=== PATIENT | male | born 1980 | race Caucasian/White ===

== ENCOUNTER 2017-04-10 13:40 | Emergency (ER) | payer OTHER ==
[~2017-04-10] VITALS: Ht 181.6 cm; Wt 168.2 kg
[2017-04-10 13:42] VITALS: BP 137/85; PULSE 86; RESP 15; O2SAT 97
[2017-04-10] MEDS ORDERED: FLUO20CA25 PO (14:30)
[2017-04-10] MEDS ORDERED: PROP20TA5 PO (14:30)
--- NOTE | 2017-04-10 14:42 | ED.REPORT ---
HPI-General Illness Date of Service Apr 10, 2017 ED Provider: Jeffery Rodriguez MD A 36 year old male with a history of hypertension, obesity and anxiety presents to the ED from his PCP's office complaining of intermittent heart palpitations that began earlier this afternoon. He describes the discomfort in his chest as a "tightness" that does not radiate outside of his chest. The pain feels similar to her previous episodes of anxiety. Patient endorses an episode of "flutter" in his anterior chest wall with associated SOB that has since resolved. He recently stopped taking Ativan 2 days ago after 2 months of treatment for anxiety.The patient denies any fever, chills, cough, nausea, vomiting, dysuria, hematuria, hematochezia, hematemesis, abdominal pain, diaphoresis, dizziness, lightheadedness, visual disturbances, ear ache, neck pain, back pain, or headache. Brother of CAD at 39. Former smoker. No previous stress test. Nursing Notes Stated Complaint: HEART ISSUE Chief Complaint: Chest Pain-Non Cardiac Nature Nursing Notes Reviewed: Yes Allergies: Coded Allergies: No Known Allergies (Unverified Allergy, Unknown, 03/01/15) Scheduled Fluoxetine (Fluoxetine) 20 Mg Capsule 60 MG PO QAM Propranolol HCl (Propranolol HCl) 20 Mg Tablet 20 MG PO TID General Time Seen by MD: 14:28 Chief Complaint Other (Heart palpitations) Hx Obtained From: Patient Arrived By: Walk-in Sudden in Onset?: No Onset Occurred: 1 - 4 hours ago Symptom Duration: Since onset Location: : Chest Quality: Fullness (Tightness) Radiation: : Does not radiate Severity: Current: Mild Severity: Maximum: Moderate Associated with: Reports: Chest pain, Shortness of breath, Denies: Abdominal pain, Cough, Diaphoresis, Dizziness, Fever, Headache, Nausea, Neck pain, Vomiting, Weakness Pertinent Negative: Pt denies other symptoms Recent Healthcare: No recent hospitalization, Recent doctor visit Similar Sx Previous: Yes Past Medical History Past Medical History Notes: Seen in ED 06/2016 for CP, neg ED workup, seen 07/30/16 for CP in ED, negative ED workup 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 Past Medical History 1. Obesity 2. Hypertension 3. Anxiety 4. Depression 5. Reports eczema Past Surgical History None reported Family History Brother: CAD at 39 Reports: Coronary artery disease Smoking History Former Smoker Social History Alcohol Use: Denies alcohol use Drug Use: Denies drug use Other Social History: Good social support, Local resident Ambulatory Status Independent Review of Systems Full Review of Systems Constitutional: Denies: Chills, Fever Eyes: Denies: Visual loss bilateral Ears / Nose / Throat: Denies: Earache bilateral Respiratory: Reports: Shortness of breath, Denies: Non-productive cough Cardiovascular: Reports: Chest pain GI: Denies: Abdominal pain, Nausea, Vomiting Male: Denies Dysuria, Denies Hematuria Musculoskeletal: Denies: Back pain, Neck pain Skin: Denies Diaphoresis Neurologic: Denies: Dizziness, Headache, Lightheaded Complete sys rev & neg: except as marked. Physical Exam Nursing note and vitals reviewed. Constitutional: Well-developed, well-nourished. Not diaphoretic. Head: Normocephalic and atraumatic. Mouth/Throat: Oropharynx is clear and moist. No oropharyngeal exudate. Eyes: EOM are normal. Pupils are equal, round, and reactive to light. Neck: Supple, no tracheal deviation. Cardiovascular: Normal rate, regular rhythm. Equal and intact distal pulses throughout. Pulmonary/Chest: Effort normal and breath sounds normal. No respiratory distress. Abdominal: Soft. No distension. There is no rebound, or guarding. Musculoskeletal: Range of motion grossly intact, moving all extremities. No edema or tenderness appreciated. Neurological: AOx3. Grossly nonfocal exam. Strength and sensation intact and equal to bilateral upper and lower extremities. Skin: Warm and dry, no rashes or pallor appreciated. Psychiatric: Appropriate mood and affect. Behavior appears normal. Vital Signs Vital Signs Date Time Temp Pulse Resp B/P Pulse Ox O2 Delivery O2 Flow Rate FiO2 04/10/17 19:18 80 20 136/67 95 Room Air 04/10/17 16:26 75 14 111/64 96 Room Air 04/10/17 13:42 35.9 86 15 137/85 97 Room Air Interpretation & Diagnostics Lab Results Interpretation Result Diagram: 04/10/17 1505 04/10/17 1505 Test 04/10/17 15:05 04/10/17 17:36 White Blood Count 11.0th/mm3 (3.8-10.1) Red Blood Count 5.19mil/mm3 (4.40-5.80) Hemoglobin 15.2g/dL (13.8-17.2) Hematocrit 44.0% (41.0-50.0) Mean Corpuscular Volume 84.8fL (81-100) Mean Corpuscular Hemoglobin 29.3pg (27.0-35.0) Mean Corpuscular Hemoglobin Concent 34.5% (32.0-37.0) Red Cell Distribution Width 13.7% (12.3-15.4) Platelet Count 344bil/L (150-400) Neutrophils (%) (Auto) 65.1% (40-74) Lymphocytes (%) (Auto) 23.7% (14-46) Monocytes (%) (Auto) 6.4% (4-12) Eosinophils (%) (Auto) 3.9% (0-5) Basophils (%) (Auto) 0.4% (0-3) D-Dimer < 0.50mg/L FEU (<0.50) Sodium Level 138mEq/L (134-144) Potassium Level 4.2mEq/L (3.5-5.2) Chloride Level 99mEq/L (97-108) Carbon Dioxide Level 24mmol/L (18-29) Blood Urea Nitrogen 13mg/dL (6-20) Creatinine 0.77mg/dL (0.76-1.27) Estimat Glomerular Filtration Rate 121mL/min (>59) Glucose Level 89mg/dL (60-99) Calcium Level 9.1mg/dL (8.5-10.1) Magnesium Level 2.0mg/dL (1.6-2.6) Total Bilirubin 0.2mg/dL (0.0-1.2) Aspartate Amino Transf (AST/SGOT) 24U/L (0-50) Alanine Aminotransferase (ALT/SGPT) 43U/L (0-44) Alkaline Phosphatase 70U/L (25-150) Total Protein 7.7g/dL (6.4-8.4) Albumin 4.1g/dL (3.4-5.0) Thyroid Stimulating Hormone (TSH) 1.180uIU/mL (0.450-4.500) Free Thyroxine 1.09ng/dL (0.82-1.77) Hold Garcia Top Tube Received (Received) Troponin T < 0.010ug/L (0.0-0.011) ECG Interpretation ECG Interpretation: Sinus Rhythm Rate 82 bpm No acute ischemic changes Time: 15:28 Interpreted by: ED physician Normal ECG Interpretation: No change from prior ECGs (08/01/2016) X-Ray Chest Interpretation Chest Xray Interpretation: IMPRESSION: No acute cardiopulmonary disease. Dictated by: Tim Huntley M.D. on 04/10/2017 at 15:02 Interpretation / Wet Read by: Interpret - Radiologist Re-Eval/Medical Decision Med Decision/Clinical Course In summary, 36-year-old male presenting to the ED for evaluation of palpitations and chest tightness. Differential includes ACS, PE, PTX, aortic dissection, dysrhythmia, myocarditis/pericarditis, abdominal etiology such as cholecystitis, MSK pain. Troponin negative x 2. HEART score of 2. EKG demonstrates sinus rhythm with no acute ischemic changes. D-dimer negative; low clinical suspicion for PE. No evidence of pneumothorax on chest x-ray or exam. Pain not described as tearing through to the back, CXR w/ no evidence of widened mediastinum, normal neuro exam, and equal pulses to bilateral upper and lower extremities; aortic dissection seems very unlikely. Sinus rhythm both on EKG and on the monitor here. Thyroid studies within normal limits. Neither clinical presentation, exam, or EKG seem c/w pericarditis or myocarditis. No abdominal pain or tenderness. Rest of labs reviewed, unremarkable; CBC grossly within normal limits with the exception of a very mild leukocytosis without a left shift, CMP grossly within normal limits. Unclear etiology for the patient' s symptoms at this time, however given his recent Ativan use and attempt to taper off, this may be somewhat related. However, patient would likely benefit from a stress test for risk stratification - discussed doing this here or as an outpatient and decided to follow up with his regular doctor on Wednesday. Very careful return precautions were discussed. Patient agreeable to plan, no further questions. Time of Eval: 16:40 Patient Status: Condition improved, Pain improved Re-Evaluation/Progress Note: Patient condition is re-evaluated. He is informed of his current results and the intended treatment plan. All questions are addressed. He understands and agrees with the plan. Strict return precautions are given. Counseled Regarding: Diagnosis, Lab results, Need for follow-up, When/why to return to ED Discharge & Departure Primary Impression: Chest pain Chest pain type: unspecified Qualified Code: R07.9 - Chest pain, unspecified Additional Impressions: Heart palpitations Anxiety Disposition: Home Discharge Condition All VS Reviewed: Yes Condition: Improved Patient Instructions: Anxiety (ED), Chest Pain (ED), Heart Palpitations (ED) Additional Instructions: Thank you for entrusting us with your care today. Your emergency department evaluation today included interview, examination, lab work, EKG and chest X-ray. Your results including repeat troponin and D-dimer are reassuring that there is no emergent cause for concern at this time, however , a clear cause of your symptoms was not identified. I highly recommend that you schedule a follow-up appointment with your primary care physician on Wednesday for a recheck and to schedule a stress test to test for cardiac abnormalities. Please return to the emergency department for any new or worsening conditions including any worsening.new chest pain, shortness of breath, abdominal pain, fevers, chills, nausea, vomiting, lightheadedness, excessive sweating, dizziness or any other concerning signs of symptoms. Referrals: Yanelis Luong DO (PCP) Scribe Attestation Portions of this note were transcribed by Esha Souza. I, Dr. Rodriguez, personally performed the history, physical exam and medical decision-making; I reviewed and confirmed the accuracy of the information in the transcribed note. Signed by: Esha Souza, 04/10/17. copies to: Yanelis Luong DO Risk Factors )( CAD Risk Stratification Risk factors reviewed TAD Risk Stratification Risk factors reviewed )( PE Risk Stratification Risk factors reviewed HEART Score HEART for MACE: Low index of susp (0), Normal ECG (0), Age under 45 (0), 3+ CAD risk factors (2), < or = to NL troponin (0) HEART for MACE Score: 0-3 (low risk 0.9%-1.7%) Jeffery Rodriguez MD Apr 10, 2017 14:42 ESHA SOUZA Apr 10, 2017 14:47
[2017-04-10] MEDS ORDERED: LORazepam 0.5 mg Tablet PO PRN (14:50)
--- NOTE | 2017-04-10 15:05 | DRSVH ---
PROCEDURE: X-RAY CHEST ONE VIEW, PORTABLE ([id number]) INDICATIONS: 36 year-old male with palpitations. TECHNIQUE: One view of the chest was acquired. COMPARISON: [facility], CR, XR CHEST 1VW, 08/01/2016, 14:07. [facility], CR , XR CHEST 2VW, 07/30/2016, 15:09. [facility], CR, XR CHEST 1VW (PORTABLE), 06/13/2016, 21:54. FINDINGS: Surgical changes and devices: None. Lungs and pleura: No pleural effusions or pneumothorax. Lungs are clear. Mediastinum: Mediastinal contours appear normal. Heart size is normal. Bones and chest wall: No suspicious bony lesions. Overlying soft tissues appear unremarkable. IMPRESSION: No acute cardiopulmonary disease. Dictated by: Tim Huntley M.D. on 04/10/2017 at 15:02 Approved by: Tim Huntley M.D. on 04/10/2017 at 15:03
[2017-04-10 15:19] LABS: BASOPHILS % (AUTO) 0.4 % (0-3); EOSINOPHILS % (AUTO) 3.9 % (0-5); MONOCYTES % (AUTO) 6.4 % (4-12); Mean Corpuscular Hemoglobin 29.3 pg (27.0-35.0); Mean Corpuscular Volume 84.8 fL (81-100); NEUTROPHILS % (AUTO) 65.1 % (40-74); Platelet Count 344 bil/L (150-400)
[2017-04-10 16:06] LABS: TROPONIN T < 0.010 ug/L (0.0-0.011)
[2017-04-10 16:26] VITALS: BP 111/64; PULSE 75; RESP 14; O2SAT 96
[2017-04-10 19:18] VITALS: BP 136/67; PULSE 80; RESP 20; O2SAT 95
== END 2017-04-10 19:19 | disposition home or self-care (01) ==
LOC: SED 13:40
DX: R07.9 Chest pain, unspecified (principal); R00.2 Palpitations; F41.9 Anxiety disorder, unspecified; E66.9 Obesity, unspecified; I10 Essential (primary) hypertension; F12.10 Cannabis abuse, uncomplicated; Z87.891 Personal history of nicotine dependence; Z68.43 Body mass index [BMI] 50.0-59.9, adult